=== PATIENT | female | born 1975 | race Caucasian/White ===

== ENCOUNTER 2022-09-07 13:19 | Emergency (ER) | payer BC, MEDICAID ==
[~2022-09-07] VITALS: Ht 160 cm; Wt 63.5 kg
--- NOTE | 2022-09-07 13:40 | NUR ---
PT IS IN ROOM #2B. DR FAIRCHILD EVALUATED THE PT.
[2022-09-07] MEDS ORDERED: IBUPROFEN 600 MG TABLET PO ONE (14:45)
[2022-09-07] MEDS ORDERED: IBUPROFEN 600 MG TABLET ONE (14:51)
[2022-09-07] MEDS ORDERED: IBUP-1955 PO (15:50)
[2022-09-07] MEDS ORDERED: CYCL10TA9 PO (15:50)
--- NOTE | 2022-09-07 15:56 | NUR ---
Patient discharged to home in stable condition. Written and verbal after care instructions given. Patient verbalizes understanding of instructions. Stressed follow up or return to ER for worsening s/s.
[2022-09-07 15:57] VITALS: BP 121/78
== END 2022-09-07 15:57 | disposition home or self-care (01) ==
LOC: ER 13:47
DX: S80.00XA Contusion of unspecified knee, initial encounter (principal); S16.1XXA Strain of muscle, fascia and tendon at neck level, initial encounter; V49.49XA Driver injured in collision with other motor vehicles in traffic accident, initial encounter; Y92.410 Unspecified street and highway as the place of occurrence of the external cause; Z88.4 Allergy status to anesthetic agent; Z88.0 Allergy status to penicillin; Z90.710 Acquired absence of both cervix and uterus
CPT/HCPCS: 72125; A4663

== ENCOUNTER 2023-04-26 12:50 | Emergency (ER) | payer BC, MEDICAID ==
[~2023-04-26] VITALS: Ht 162.6 cm; Wt 79.4 kg
[~2023-04-26 12:50] MED LIST: CYCL10TA9 PO; IBUP-1955 PO
[2023-04-26] MEDS ORDERED: AZITHROMYCIN 250 MG TABLET PO ONE (13:15)
[2023-04-26] MEDS ORDERED: METOCLOPRAMIDE HCL 10 MG/2 ML VIAL IV ONE (13:15)
[2023-04-26] MEDS ORDERED: predniSONE 20 MG TABLET PO ONE (13:15)
[2023-04-26] MEDS ORDERED: IV NORMAL SALINE 1000 ML BAG IV ONE (13:15)
[2023-04-26] MEDS ORDERED: CEFTRIAXONE 1 G in IV DEXTROSE 5% 50 ML IV ONE (13:15)
[2023-04-26] MEDS ORDERED: CEFTRIAXONE 1 G VIAL ONE (13:21)
[2023-04-26] MEDS ORDERED: predniSONE 10 MG TABLET ONE (13:22)
[2023-04-26] MEDS ORDERED: AZITHROMYCIN 250 MG TABLET ONE (13:22)
[2023-04-26] MEDS ORDERED: METOCLOPRAMIDE HCL 10 MG/2 ML VIAL ONE (13:22)
[2023-04-26] MEDS ORDERED: predniSONE 50 MG TABLET ONE (13:22)
[2023-04-26 13:28] LABS: *BILIRUBIN,URIN NEGATIVE (NEGATIVE); *BLOOD, URINE 1+ (NEGATIVE); *CLARITY,URINE CLEAR (CLEAR); *COLOR,URINE YELLOW (YELLOW); *KETONES,URINE NEGATIVE (NEGATIVE); *PROTEIN,URINE 1+ (NEGATIVE); *UROBILINOGEN,URINE 0.2 E.U./dl (NORMAL); LEUKOCYTE ESTERASE ,URINE NEGATIVE (NEGATIVE); NITRITE, URINE NEGATIVE (NEGATIVE); UGLUCOSE NEGATIVE (NEGATIVE)
[2023-04-26 13:34] LABS: BASOPHILS # (AUTO) 0.1 K/UL (0.0-0.2); BASOPHILS % (AUTO) 1.4 % (0.0-2.0); EOSINOPHILS # (AUTO) 0.2 K/uL (0.0-0.7); EOSINOPHILS % (AUTO) 2.8 % (0.0-7.0); HEMATOCRIT 41.2 % (31.2-41.9); HEMOGLOBIN 14.1 g/dL (10.9-14.3); LYMPHOCYTES # (AUTO) 2.7 K/uL (0.8-4.8); LYMPHOCYTES % (AUTO) 30.2 % (20.5-51.5); MEAN CORPUSCULAR HEMOGLOBIN 29.8 uug (24.7-32.8); MEAN CORPUSCULAR HGB CONC 34 g/dL (32.3-35.6); MEAN CORPUSCULAR VOLUME 87.1 fL (75.5-95.3); MONOCYTES # (AUTO) 0.6 K/uL (0.1-1.30); MONOCYTES % (AUTO) 6.2 % (0.0-11.0); NEUTROPHILS # (AUTO) 5.3 K/uL (1.8-8.9); NEUTROPHILS % (AUTO) 59.4 % (38.5-71.5); PLATELET COUNT (AUTO) 382 K/uL (179-408); RED BLOOD CELL COUNT(AUTO) 4.73 MIL/uL (3.63-4.92); RED CELL DISTRIBUTION WIDTH 13.7 % (12.3-17.7)
[2023-04-26 13:35] LABS: BACTERIA,URINE FEW /HPF (NONE SEEN); SQUAMOUS EPITHELIAL CELL,UR MODERATE /HPF (NONE SEEN); WBC,URINE 0-3 /HPF (0-3)
[2023-04-26 13:40] LABS: DIFFERENTIAL COMMENT 1
[2023-04-26 13:43] LABS: CALCIUM 8.2 mg/dL (8.5-10.1); CARBON DIOXIDE 24 mmol/L (21-32); CHLORIDE 102 mmol/L (98-107); CREATININE 0.6 mg/dL (0.6-1.3); GLUCOSE 118 mg/dL (74-106); POTASSIUM 4.1 mmol/L (3.5-5.1); SODIUM SERUM 137 mmol/L (136-145); UREA NITROGEN, BLOOD 8 mg/dL (7-18)
[2023-04-26 13:50] LABS: ALANINE AMINOTRANSFERASE 56 U/L (14-59); ALBUMIN 3.7 g/dL (3.4-5.0); ALKALINE PHOSPHATASE 74 U/L (50-136); ASPARTATE AMINOTRANSFERASE 27 U/L (15-37); BILIRUBIN,DIRECT 0.1 mg/dL (0.0-0.2); BILIRUBIN,TOTAL 0.4 mg/dL (0.2-1.0); TOTAL PROTEIN, SERUM 7.1 g/dL (6.4-8.2)
[2023-04-26] MEDS ORDERED: PRED50TA PO (14:19)
[2023-04-26] MEDS ORDERED: AZIT500T PO (14:19)
[2023-04-26 14:30] VITALS: BP 130/76; O2SAT 99
== END 2023-04-26 14:33 | disposition home or self-care (01) ==
LOC: ER 12:57
DX: J18.9 Pneumonia, unspecified organism (principal); R51.9 Headache, unspecified; R07.89 Other chest pain; Z90.710 Acquired absence of both cervix and uterus; Z88.0 Allergy status to penicillin; Z88.8 Allergy status to other drugs, medicaments and biological substances; Z79.2 Long term (current) use of antibiotics; Z79.1 Long term (current) use of non-steroidal anti-inflammatories (NSAID); Z79.899 Other long term (current) drug therapy; Z20.822 Contact with and (suspected) exposure to COVID-19
CPT/HCPCS: 99285; 96365; 71045; 96375; 87426; 80076; 80048; 81001; 83880; 85025; 84145; 85730; 87040 ×3; 84484; 36415; 93005; 83605; J7512 ×2; J0696; J2765; J7040; A4663; Q0144

== ENCOUNTER 2023-06-19 14:45 | Emergency (ER) | payer BC, MEDICAID ==
[~2023-06-19] VITALS: Ht 167.6 cm; Wt 76.7 kg
[~2023-06-19 14:45] MED LIST changes: +AZIT500T PO; -CYCL10TA9 PO; -IBUP-1955 PO; +PRED50TA PO
[2023-06-19 15:22] LABS: BASOPHILS # (AUTO) 0.3 K/UL (0.0-0.2); BASOPHILS % (AUTO) 3.4 % (0.0-2.0); EOSINOPHILS # (AUTO) 0.5 K/uL (0.0-0.7); EOSINOPHILS % (AUTO) 6.3 % (0.0-7.0); HEMATOCRIT 41.2 % (31.2-41.9); HEMOGLOBIN 13.9 g/dL (10.9-14.3); LYMPHOCYTES # (AUTO) 0.8 K/uL (0.8-4.8); LYMPHOCYTES % (AUTO) 10.5 % (20.5-51.5); MEAN CORPUSCULAR HEMOGLOBIN 30.1 uug (24.7-32.8); MEAN CORPUSCULAR HGB CONC 34 g/dL (32.3-35.6); MEAN CORPUSCULAR VOLUME 89.5 fL (75.5-95.3); MONOCYTES # (AUTO) 0.2 K/uL (0.1-1.30); MONOCYTES % (AUTO) 3.2 % (0.0-11.0); NEUTROPHILS # (AUTO) 5.6 K/uL (1.8-8.9); NEUTROPHILS % (AUTO) 76.6 % (38.5-71.5); PLATELET COUNT (AUTO) 407 K/uL (179-408); RED BLOOD CELL COUNT(AUTO) 4.61 MIL/uL (3.63-4.92); RED CELL DISTRIBUTION WIDTH 13.5 % (12.3-17.7); WHITE BLOOD COUNT (AUTO) 7.3 K/uL (3.8-11.8)
[2023-06-19 15:25] LABS: DIFFERENTIAL COMMENT 1
[2023-06-19 15:38] LABS: *BILIRUBIN,URIN NEGATIVE (NEGATIVE); *CLARITY,URINE CLEAR (CLEAR); *COLOR,URINE YELLOW (YELLOW); *KETONES,URINE NEGATIVE (NEGATIVE); *PROTEIN,URINE 2+ (NEGATIVE); *UROBILINOGEN,URINE 0.2 E.U./dl (NORMAL); LEUKOCYTE ESTERASE ,URINE NEGATIVE (NEGATIVE); NITRITE, URINE NEGATIVE (NEGATIVE); PH,URINE 8.5 (5.0-8.0); UGLUCOSE NEGATIVE (NEGATIVE)
[2023-06-19 15:44] LABS: ALANINE AMINOTRANSFERASE 54 U/L (14-59); ALBUMIN 3.9 g/dL (3.4-5.0); ALKALINE PHOSPHATASE 82 U/L (50-136); ASPARTATE AMINOTRANSFERASE 25 U/L (15-37); BILIRUBIN,TOTAL 0.5 mg/dL (0.2-1.0); CALCIUM 9.7 mg/dL (8.5-10.1); CARBON DIOXIDE 25 mmol/L (21-32); CHLORIDE 102 mmol/L (98-107); GLUCOSE 179 mg/dL (74-106); NT-PRO BNP 23 pg/mL (0-125); POTASSIUM 3.3 mmol/L (3.5-5.1); SODIUM SERUM 139 mmol/L (136-145); TOTAL PROTEIN, SERUM 7.3 g/dL (6.4-8.2); UREA NITROGEN, BLOOD 13 mg/dL (7-18)
[2023-06-19 15:49] LABS: *BLOOD, URINE TRACE (NEGATIVE)
[2023-06-19 15:53] LABS: *URINE HCG, QUAL NEGATIVE (NEGATIVE)
[2023-06-19 16:02] LABS: *AMPHETAMINE, URINE NEGATIVE (NEGATIVE); *BARBITURATE, URINE NEGATIVE (NEGATIVE); *BENZODIAZEPINE, URINE NEGATIVE (NEGATIVE); *CANNABINOID, URINE NEGATIVE (NEGATIVE); *COCCAINE, URINE NEGATIVE (NEGATIVE); *OPIATE, URINE NEGATIVE (NEGATIVE); *PHENCYCLIDINE SCREEN,URINE NEGATIVE (NEGATIVE); FENTANYL, URINE NEGATIVE (NEGATIVE)
[2023-06-19 16:11] LABS: ETHANOL < 3 MG/DL (0-10)
[2023-06-19 16:26] LABS: THYROID STIMULATING HORMONE 2.517 mIU/mL (0.358-3.740)
[2023-06-19 16:35] LABS: BACTERIA,URINE FEW /HPF (NONE SEEN); RBC,URINE 0-3 /HPF (0-3); WBC,URINE NONE SEEN /HPF (0-3)
[2023-06-19 16:36] LABS: SQUAMOUS EPITHELIAL CELL,UR MODERATE /HPF (NONE SEEN)
[2023-06-19] MEDS ORDERED: POTASSIUM CHLORIDE 20 MEQ TAB.PRT.SR PO ONE (17:00)
[2023-06-19 18:02] VITALS: BP 134/76; O2SAT 98
== END 2023-06-19 17:00 | disposition home or self-care (01) ==
LOC: ER 14:45
DX: F41.9 Anxiety disorder, unspecified (principal); I10 Essential (primary) hypertension; Z90.710 Acquired absence of both cervix and uterus; Z88.0 Allergy status to penicillin; Z88.1 Allergy status to other antibiotic agents; Z88.8 Allergy status to other drugs, medicaments and biological substances; Z79.2 Long term (current) use of antibiotics; Z79.899 Other long term (current) drug therapy
CPT/HCPCS: 36415; 71045; 84443; 84484; 84703; 85025; G0480

== ENCOUNTER 2024-05-07 20:29 | Emergency (ER) | payer BC ==
[~2024-05-07] VITALS: Ht 167.6 cm; Wt 80.3 kg
[2024-05-07] MEDS ORDERED: IBUPROFEN 800 MG TABLET ONE (21:30)
[2024-05-07] MEDS: IBUPROFEN 800 MG TABLET PO ONE (21:31)
[2024-05-07] MEDS ORDERED: NAPR-1009 PO (23:25)
[2024-05-08 00:12] VITALS: BP 130/88; TEMP 97.8; O2SAT 99
== END 2024-05-08 00:05 | disposition home or self-care (01) ==
LOC: ER 20:30
DX: S93.491A Sprain of other ligament of right ankle, initial encounter (principal); R03.0 Elevated blood-pressure reading, without diagnosis of hypertension; F32.A Depression, unspecified; Z79.1 Long term (current) use of non-steroidal anti-inflammatories (NSAID); Z90.49 Acquired absence of other specified parts of digestive tract; Z79.899 Other long term (current) drug therapy; Z60.2 Problems related to living alone; Z88.0 Allergy status to penicillin; Z88.1 Allergy status to other antibiotic agents; W10.8XXA Fall (on) (from) other stairs and steps, initial encounter; Y93.89 Activity, other specified; Y92.89 Other specified places as the place of occurrence of the external cause; Y99.8 Other external cause status
CPT/HCPCS: 73610; 73620; A4606; A4663